=== PATIENT | female | born 1995 | race Caucasian/White ===

== ENCOUNTER → 2021-10-31 11:45 | Outpatient (BNVA) | payer OTHER, SELFPAY | PROVIDERS: Family Provider Family Medicine; Visit Provider Family Medicine | DX: E66.01 Morbid (severe) obesity due to excess calories (principal); Z68.41 Body mass index [BMI] 40.0-44.9, adult | CPT/HCPCS: 80053; 84443; 85025 ==

== ENCOUNTER 2022-01-31 18:20 | Emergency (ER) | payer OTHER, BC, MEDICAID, SELFPAY ==
--- NOTE | 2022-01-31 18:28 | XRR_ITS ---
PROCEDURE INFORMATION: Exam: XR Left Ankle Exam date and time: 01/31/2022 6:45 PM Age: 26 years old Clinical indication: Pain; Ankle; Left; Additional info: Injury TECHNIQUE: Imaging protocol: XR Left ankle. Views: 3 or more views. COMPARISON: No relevant prior studies available. FINDINGS: Bones/joints: Comminuted displaced fracture in the distal diaphysis of the left fibula, over 4 cm proximal to the ankle joint. Widening of the medial ankle mortise. Mildly displaced posterior malleolus fracture of the tibia. The medial malleolus is intact. The talus is intact. Soft tissues: Circumferential soft tissue swelling. XR/XR ankle LT min 3V* [id number] IMPRESSION: Fish C left ankle fracture with widening of the medial ankle mortise.
[2022-01-31 18:35] VITALS: BP 128/86; PULSE 97; RESP 14; TEMP 37.3; O2SAT 100
--- NOTE | 2022-01-31 18:57 | ED_ITS ---
HPI - Extremity Problem General: Chief complaint: Extremity Injury, Lower Stated complaint: Dodie salinas injury Time Seen by Provider: 01/31/22 18:41 Source: patient Mode of arrival: ambulatory Limitations: no limitations History of Present Illness: 26-year-old female who states that she had tried to throw a board up on the roof and came back down she was trying to dodge it and twisted her ankle and felt. States that happened just before arrival she has pain to the lateral and medial portion of the ankle she rates an 8 out of 10 states she has not been able to bear weight on it. Denies any other injuries. Associated symptoms: Deny chest pain, fever(s) or rash Review of Systems Const: Denies: fever(s), chills, body aches or change in appetite Eyes: Denies: blurry vision or eye discomfort ENMT: Denies: throat pain or dental pain Card: Denies: chest pain Resp: Denies: dyspnea GI: Denies: abdominal pain, nausea, vomiting or diarrhea : Denies: dysuria Musc: Reports: extremity pain; Denies: neck pain or back pain Skin/Breast: Denies: rash Neuro: Denies: headache(s) Psych: Denies: depression Stan/Lymph: Denies: easy bruising All/Imm: Denies: urticaria PFSH ED PFSH: Medical History No significant past medical history Surgical History Status post tubal ligation Family History Father Diabetes Hypertension Mother Diabetes Grandmother Cancer Diabetes Grandfather Diabetes Social History Smoking and tobacco status: never smoked Alcohol intake: never Physical Exam Const: COMMON NORMALS: no acute distress, patient oriented x3 and healthy appearing HENMT: COMMON NORMALS: normocephalic and atraumatic HEAD & SCALP: normocephalic and atraumatic Eye: COMMON NORMALS: Equal, round and reactive pupils present and EOMs intact bilaterally PUPIL: Yes Equal, round and reactive pupils present Neck/C-Spine: COMMON NORMALS: full ROM and supple Chest: COMMONS NORMALS: normal inspection of the chest and normal palpation of entire chest wall Resp: COMMON NORMALS: normal respiratory effort, No retractions, No use of accessory muscles and clear to auscultation bilaterally AUSCULTATION: clear to auscultation bilaterally Cardio: COMMON NORMALS: regular rate, regular rhythm and No murmurs present (Cardio) RATE: regular rate RHYTHM: regular rhythm GI: COMMON NORMALS: Normal to inspection, nondistended, normoactive bowel sounds present, Soft to palpation, non-tender and no masses PALPATION: Yes Soft to palpation Extremity: NARRATIVE EXTREMITY EXAM: Tenderness to left lateral ankle distal pulses sensation intact Neuro: COMMON NORMALS: patient oriented x3, moves all extremities and no focal motor deficits Psych: COMMON NORMALS: mental status grossly normal, Normal thought process present and cooperative THOUGHT PROCESS: Normal thought process present Skin: COMMON NORMALS: no rashes or lesions noted and no wounds GENERAL SKIN EXAM: no rashes or lesions noted Course Vital Signs: Vital signs: Vital Signs Temperature 99.2 F 01/31/22 18:35 Pulse Rate 97 01/31/22 18:35 Respiratory Rate 14 01/31/22 18:35 Blood Pressure 128/86 01/31/22 18:35 Pulse Oximetry 100 01/31/22 18:35 MDM - Extremity (Nontraumatic) Medical Decision Making Patient presents here with fracture of the left ankle no other injuries noted patient placed in a splint is to follow-up with orthopedics and return if worsening she understands agrees to plan. Discharge Plan Discharge Patient Disposition: Home Clinical Impression: Ankle fracture Qualifiers: Encounter type: initial encounter Fracture type: closed Laterality: left Qualified Code(s): S82.892A - Other fracture of left lower leg, initial encoun ter for closed fracture Condition: Stable Prescriptions: New hydrocodone-acetaminophen 5-325 mg tablet 1 tab PO Q6H PRN (Reason: pain) Qty: 14 0RF No Action calcium carbonate [Tums] 200 mg calcium (500 mg) tablet,chewable 200 mg PO BID 0RF Contrave 8-90 mg tablet extended release 1 tab PO BID Qty: 60 2RF Discharge Orders: Discharge ED (Routine); Ordered 01/31/22 Ordered By: Fabrizio Hampton Referrals: Alon Chaudhry MD [Physician] - 1-3 days Discharge Diet: Advance as tolerated Discharge Activity: Resume usual activity Patient Instructions: Ankle Fracture (ED), Opioid Safety Coding Level of Care Code ED Coloring Room Man for Bisi Chauhan
[2022-01-31] MEDS: HYDROcodone-acetaminophen 7.5-325 mg Tablet 1 TAB PO (19:28)
[2022-01-31 19:31] VITALS: BP 137/75; PULSE 85; RESP 18; TEMP 37.1; O2SAT 100
--- NOTE | 2022-02-01 18:04 | DCPLANNER ---
Addendum entered by Sierra Heredia 02/15/22 14:11: Patient had a follow up appointment scheduled for 02.02.[address] Chaudhry at ortho - patient did attend appointment. Original Note: import customer service manager had message to schedule a follow up appointment for patient with ortho. import customer service manager sent patients information to the front staff at ortho. Patients information will be printed and reviewed. Clinic will call patient with appointment information.
== END 2022-01-31 19:33 | disposition home or self-care (01) ==
PROVIDERS: Emergency Provider Emergency Medicine
DX: S82.892A Other fracture of left lower leg, initial encounter for closed fracture (principal); X50.1XXA Overexertion from prolonged static or awkward postures, initial encounter
CPT/HCPCS: 29515; 73610; 99283; E0114

== ENCOUNTER 2022-02-08 07:09 | Day surgery (SDC) | payer OTHER, BC, MEDICAID, SELFPAY ==
[2022-02-07 10:12] VITALS: BMI 43.9
[2022-02-08] VITALS (22 sets, daily range): BP systolic 105–152; BP diastolic 62–105; PULSE 78–107; RESP 16–25; TEMP 36.4–37.3; O2SAT 94–99
--- NOTE | 2022-02-08 | SCC_ITS ---
Procedure done: Open reduction internal fixation left lateral malleolus and posterior malleolus, open syndesmotic fixation 67.8 seconds of fluoroscopic guidance, for a cumulative dose of 1.7 mGy, was provided to Dr. Chaudhry by the radiology department. C-arm images of the LEFT ankle were saved for the patient's permanent record. [facility] CENTERJaneth
--- NOTE | 2022-02-08 | XR_ITS ---
WS: [id number] XR ankle LT 1V [id number] REASON FOR EXAM: [facility] FINDINGS: Plate and screw fixation of comminuted fracture of the distal left fibula with long transverse tibial fibular screw. Screw fixation of posterior malleolar fracture. Surgical appliances and fracture fragments are in proper position and alignment. Ankle joint spaces are preserved. XR/XR ankle LT 1V [id number] IMPRESSION: Internal fixation of complex left ankle fracture without abnormality.
[2022-02-08 07:52] LABS: OR HCG Qualitative Urine Negative (Negative)
[2022-02-08] MEDS: sodium chloride 0.9% 1,000 ML 30 ML IV (07:58)
--- NOTE | 2022-02-08 08:23 | ANES.PREANE2 ---
Pre-Anesthetic Assessment Height/Weight: Height 1.57 m Weight 108.862 kg Temp Pulse Resp BP Pulse Ox 97.6 F 92 16 134/98 99 02/08/22 07:48 02/08/22 07:48 02/08/22 07:48 02/08/22 07:48 02/08/22 07:48 Preop Diagnosis: Trimalleolar left ankle fracture Operation Date: 02/08/22 08:40 Proposed Procedures p ORIF Left Trimallealor Ankle Fracture 56845/S82.852A(Left) - Alon Chaudhry MD Familial anesthetic complications: none Was Beta Haley taken within 24 hours: N/A Was Clonidine taken within 24 hours: N/A Last intake: Intake Last Liquid Date 02/07/22 Last Liquid Time 21:00 Last Solid Date 02/07/22 Last Solid Time 21:00 Social No alcohol and No tobacco Exam alert, oriented x 3, clear to auscultation bilaterally and regular rate & rhythm Airway Submandibular: within normal limits Cervical ROM: within normal limits Mallampati: Class II Dentition: full History/ROS No significant complaints Pulmonary None reported CV/HEM None reported None reported Hepatic None reported GI Gastroesophageal Reflux Disease Metabolic Morbid Obesity [facility] None reported Neuropsych Depression Anesthetic Plan ASA status: 3 (26 year old morbildy obese female w/ GERD ) Anesthesia: Anesthesia Evaluation, Eval. for regional block, General and Regional (specify below) (PRN post op Popliteal/Adductor blocks for post op pain control ) Other: We discussed risk and benefits of general anesthesia including PONV, sore throat (sometimes severe), corneal abrasion, positioning and peripheral nerve injuries, life threatening allergic reaction, post operative ICU admission requiring prolonged intubation, stroke, heart attack, , and rare incidences of recall. Patient consents to proceed with general anesthesia. We discussed risk and benefits of nerve block for post op pain control including management of pain and titration of pain medications as signs/symptoms of nerve block wearing off begin to appear and/or prior bed. We discussed risk of failed nerve block, vascular injury or other vital structure injury, abscess/infection, LAST, and nerve injury. Patient agress to PRN post op block. Risk of > 500 ml blood loss (7ml/kg in children): No Medications/Allergies Home Medications Medication Instructions Recorded Confirmed Last Taken Type ibuprofen 600 mg tablet 600 mg PO Q6H PRN 02/07/22 02/08/22 02/07/22 History oxycodone-acetaminophen 5 mg-325 1 tab PO Q4H PRN #30 tab 02/08/22 Unknown Rx mg tablet (Percocet) Allergies Allergy/AdvReac Type Severity Reaction Status Date / Time No Known Allergies Allergy Verified 02/02/22 10:13 Current Medications Generic Name Dose Route Start Last Admin Trade Name Freq PRN Reason Stop Dose Admin Sodium Chloride 1,000 mls @ 30 mls/hr 02/08/22 07:45 02/08/22 07:58 Sodium Chloride 0.9% IV 02/09/22 07:44 30 mls/hr .Q24H SHANIQUA Administration PFSH Anesthesia Medical History No significant past medical history Surgical History Status post tubal ligation Family History Father Diabetes Hypertension Mother Diabetes Grandmother Cancer Diabetes Grandfather Diabetes Social History Smoking and tobacco status: never smoked Alcohol intake: never Female Reproductive History Date of last menstrual period: 01/15/22 Data Anesthesia Cardiac Studies: No Data to Display
--- NOTE | 2022-02-08 08:47 | W.PM.OPSUD ---
Surgery/Procedure H&P Update DATE OF PROCEDURE: February 08, 2022 DATE H&P PERFORMED: 02/02/22 H&P UPDATE INFORMATION: I have reviewed H&P completed within last 30 days PREOP DIAGNOSIS: Trimalleolar left ankle fracture PLANNED PROCEDURE: Operation Date: 02/08/22 08:40 Proposed Procedures p ORIF Left Trimallealor Ankle Fracture 30756/S82.852A(Left) - Alon Chaudhry MD
--- NOTE | 2022-02-08 10:53 | P.OP_ITS ---
Operative Report Date of procedure: February 08, 2022 Pre-op diagnosis: Preop Diagnosis bimalleolar left ankle fracture Post-op diagnosis: same Procedure done: Open reduction internal fixation left lateral malleolus and posterior malleolus, open syndesmotic fixation Implants: Migue Variax 10 hole Variax plate with 6 screws (3 locking and 3 nonlocking, 1 of which passed through the syndesmosis), 3 bicortical nonlocking screws, one 4.0 mm cannulated ASNIS screw and washer across posterior malleolus Surgeon: Alon Chaudhry Anesthesia: General Estimated blood loss (mL): 10 Tourniquet time (min): 77 Complications: None Findings: The patient had a comminuted high lateral malleolar fracture consisting of to butterfly fragments. There is a large posterior malleolar fracture. There was widening of the medial clear space suggestive of deltoid ligament disruption. After fixation of the fibula there was widening of the syndesmosis with external rotation force suggesting additional syndesmosis instability Condition: stable Disposition: PACU Procedure: The patient was taken the operating room given general anesthesia and 2 g of Ancef. She is prepped and draped in the supine position with a large bump underneath the left hip. A 12 cm long incision was made beginning at the tip of the lateral malleolus extending proximally. Dissection was carried down full- thickness retracting the peroneal musculature posteriorly. The fibula fracture and comminuted fracture fragments were identified. Additionally the anterior butterfly fragment was fixed to the distal and proximal fragments respectively with interfragmentary screws maintaining length and provisionally controlling rotation. The posterior butterfly fragment screw was a smaller and was fixed with a single anterior to posterior compression screw. A 10 hole plate was then contoured over the fibula and fixed proximally and distally with nonlocking screws at both ends and locking screws through the next to most proximal and distal holes in the plate. Intraoperative stress imaging revealed widening of the medial clear space and syndesmosis with external rotation force and efforts were then made to address the posterior malleolar fracture and syndesmosis. Dissection was carried down between the Achilles tendon and peroneal's to the posterior malleolus. A small stab wound was made over the anterior tibia and a large reduction clamp used to manipulate the posterior malleolus into position. A guidewire was driven from the posterior malleolus anteriorly and medially. And over this was placed a 4.0 mm Asnis screw and washer. The third screw from the bottom of the plate was then removed. The drill was then passed across the fibula into the tibia. A long screw passing through all 4 cortices was then placed with visualization of the syndesmosis anteriorly. At the conclusion a posterior malleolar fixation and and syndesmotic screw placement instability with external rotation was eliminated. The knee was irrigated with saline. Skin edges were infiltrated with 20 cc of quarter percent Marcaine. Deep tissues were closed with 2-0 Vicryl and the skin was closed with skin giselle. Xeroflo gauze, 4 x 4's, web roll, posterior splint and a Cesar wrap were applied. The patient was extubated and taken to recovery room in stable condition.
[2022-02-08] MEDS: fentaNYL 50 mcg/mL INJ 2mL IVP ×2 (11:09→11:22)
[2022-02-08] MEDS: HYDROmorphone 1 mg/mL INJ 1 mL 0.5 MG IVP ×2 (11:32→11:42)
[2022-02-08] MEDS: oxyCODONE-APAP 5-325 mg Tablet 1 TAB PO (13:13)
--- NOTE | 2022-02-08 13:38 | P.ANES_ITS ---
Anesthesia Procedures Procedure/Date: 02/08/22 Nerve Block ^: Nerve Block 1: Main Anesthesia: general anesthesia Time Out Performed: Yes (1230) Consent: requested by attending/covering physician, from patient, risks and bene fits reviewed and patient agrees to proceed Nerve block location: popliteal Anesthesia monitors applied: pulse oximetry, EKG and BP cuff Nerve block position: supine Anesthetic Used: lidocaine 2% (10 ml ) and ropivicaine 0.5% (30 ml) Amount of anesthesia used (mL): 30 Ultrasound used to: recognize landmarks Nerve Stimulator Used?: No Injection: neg aspiration of heme Patient Tolerated Procedure: well and no complications Complications: none Additional Comments: After time out sterile prep, using sterile technique, and using real time US guidance for target selection needle was inserted with real time visualization of needle entry and real time visualization of needle advancement toward intended target. Negative aspiration. LA injected incrementally with negative aspiration every 5 cc and real time US visualization of LA spread throughout procedure. Tolerated well. Image(s) saved.
--- NOTE | 2022-02-08 13:40 | ANE.PACU2 ---
Inpatient post-anesthesia follow up: Airway intact: Yes Vital signs: Temperature 99.2 F Pulse Rate 78 Respiratory Rate 22 Blood Pressure 123/62 Pulse Oximetry 99 Oxygen Delivery Me thod Room Air Oxygen Flow Rate 6 Fraction of Inspir ed Oxygen Hydration adequate: Yes Nausea and vomiting: No Pain level: 5 Mental status: Baseline
== END 2022-02-08 13:43 | disposition home or self-care (01) ==
PROVIDERS: Anesthesiology; PCP Family Medicine; Visit Provider Orthopaedic Surgery
PROC: (CPT 27814; principal; 2022-02-08 08:30)
DX: S82.842A Displaced bimalleolar fracture of left lower leg, initial encounter for closed fracture (principal); X58.XXXA Exposure to other specified factors, initial encounter; E66.01 Morbid (severe) obesity due to excess calories; Z68.41 Body mass index [BMI] 40.0-44.9, adult
CPT/HCPCS: 27814; 64450; 73600; 76000; 76942; 81025; 84703; C1713; J0690; J1100; J1170; J1200; J2405; J2704; J2710; J2795; J3010; J3490; J7030

== ENCOUNTER → 2022-02-20 08:30 | Outpatient (BNVA) | payer BC, MEDICAID, SELFPAY | PROVIDERS: PCP Family Medicine; Visit Provider Nurse Practitioner Family | DX: Z98.890 Other specified postprocedural states (principal) | CPT/HCPCS: 73610 ==

== ENCOUNTER 2022-02-20 10:40 | Outpatient (CLI) | payer BC, MEDICAID, SELFPAY | END 2022-02-20 10:41 | disposition home or self-care (01) | LOC: SPT 10:41 | PROVIDERS: PCP Family Medicine; Visit Provider Nurse Practitioner Family | DX: Z46.89 Encounter for fitting and adjustment of other specified devices (principal); S82.852D Displaced trimalleolar fracture of left lower leg, subsequent encounter for closed fracture with routine healing; X58.XXXD Exposure to other specified factors, subsequent encounter | CPT/HCPCS: 97760; L4361 ==

== ENCOUNTER → 2022-03-20 09:18 | Outpatient (BNVA) | payer BC, MEDICAID, SELFPAY | PROVIDERS: PCP Family Medicine; Visit Provider Nurse Practitioner Family | DX: S82.852D Displaced trimalleolar fracture of left lower leg, subsequent encounter for closed fracture with routine healing (principal); X58.XXXD Exposure to other specified factors, subsequent encounter; Z98.890 Other specified postprocedural states | CPT/HCPCS: 73610; 99024 ==

== ENCOUNTER → 2022-05-15 09:33 | Outpatient (BNVA) | payer BC, MEDICAID, SELFPAY | PROVIDERS: PCP Family Medicine; Visit Provider Nurse Practitioner Family | DX: S82.852A Displaced trimalleolar fracture of left lower leg, initial encounter for closed fracture (principal); X58.XXXA Exposure to other specified factors, initial encounter; Z98.890 Other specified postprocedural states | CPT/HCPCS: 73610; 99213; 99214 ==